=== PATIENT | female | born 1945 | race Caucasian/White ===

== ENCOUNTER 2020-04-05 20:09 | Inpatient (IN) | payer OTHER, MEDICAID, SELFPAY ==
[~2020-04-05] VITALS: Ht 142.2 cm; Wt 46.7 kg
[2020-04-05 20:09] VITALS: BP_SYST 104
[2020-04-05] MEDS ORDERED: NS 500 ML IV ONE (20:30)
[2020-04-05] MEDS ORDERED: NACL 0.9% 1,000 ML IV ONE ×2 (20:41→22:45)
[2020-04-05] MEDS ORDERED: cefTRIAXone 1 GM IVPB PREMIX 50 ML IV ONE (21:00)
[2020-04-05] MEDS ORDERED: AZITHROMYCIN 500 MG in D5W 250 ML IV ONE (21:00)
[2020-04-05 21:03] LABS: MEAN CORPUSCULAR HEMOGLOBIN 29 pg (27-31); MEAN CORPUSCULAR HGB CONC 31 % (32-36)
[2020-04-05] MEDS ORDERED: AZITHROMYCIN 500 MG/VIAL (ZITHROMAX) IV ONE ×2 (21:31)
[2020-04-05 21:32] LABS: MEAN CORPUSCULAR VOLUME 92 fL (79.0-98.0); PLATELET COUNT (AUTO) 276 K/uL (130-430); RED CELL DISTRIBUTION WIDTH 17.4 % (9.0-15.0)
[2020-04-05 21:41] LABS: ANION GAP 16 (5-15); CREATININE 0.97 mg/dL (0.55-1.30); GLUCOSE 103 mg/dL (70-99); SODIUM SERUM 153 mmol/L (136-145); UREA NITROGEN, BLOOD 89 mg/dL (8-21)
[2020-04-05 21:42] LABS: INR 1.4 (0.8-1.2)
[2020-04-05 21:47] LABS: CHLORIDE 124 mmol/L (98-107); POTASSIUM 1.7 mmol/L (3.5-5.1)
[2020-04-05 21:48] LABS: TOTAL BILIRUBIN 0.2 mg/dL (0.0-1.0)
[2020-04-05 21:49] LABS: ALANINE AMINOTRANSFERASE 12 U/L (12-78); ALBUMIN 1.2 g/dL (3.4-4.8); ASPARTATE AMINOTRANSFERASE 11 U/L (10-37)
[2020-04-05 21:50] LABS: LACTATE DEHYDROGENASE 96 U/L (81-234); LIPASE 57 U/L (73-393)
[2020-04-05 21:55] LABS: WHITE BLOOD COUNT (AUTO) 1.4 K/uL (4.8-10.8)
[2020-04-05 21:56] LABS: HEMATOCRIT 16.4 % (36-48); HEMOGLOBIN 5.1 g/dL (12.0-16.0); RED BLOOD CELL COUNT(AUTO) 1.79 MIL/uL (4.2-6.2)
[2020-04-05] MEDS ORDERED: KCL 20 mEq in 100 mL (PREMIX) 100 ML IV ONE ×2 (22:00→22:14)
[2020-04-05] MEDS ORDERED: CALCIUM GLUCONATE 1 GM/10 ML VIAL IVP ONE (22:15)
[2020-04-05 22:27] LABS: C-REACTIVE PROTEIN QUANT 19.8 mg/dL (0-0.5)
[2020-04-05 22:54] LABS: BILIRUBIN,URINE NEGATIVE (NEGATIVE); BLOOD, URINE NEGATIVE (NEGATIVE); COLOR,URINE YELLOW (YELLOW); GLUCOSE,URINE NEGATIVE (NEGATIVE); KETONES,URINE NEGATIVE (NEGATIVE); LEUKOCYTE ESTERASE ,URINE 2+ (NEGATIVE); NITRITE, URINE NEGATIVE (NEGATIVE); PH,URINE 5.5 (5.0-8.0); PROTEIN URINE NEGATIVE (NEGATIVE)
[2020-04-05 22:56] LABS: CLARITY/URINE HAZY (CLEAR)
[2020-04-05 23:08] LABS: BACTERIA,URINE MANY /HPF (None Seen); RBC,URINE 0-3 /HPF (0-3); WBC,URINE 20-50 /HPF (0-3)
[2020-04-05 23:09] LABS: URINE AMORPHOUS URATE 1+ /HPF (None Seen)
[2020-04-05 23:19] LABS: BAND % (MANUAL) 51 % (0-6); BASOPHILS % (MANUAL) 0 % (0-2); EOSINOPHILS % (MANUAL) 0 % (0-7); LYMPHOCYTES % (MANUAL) 18 % (20-46); MONOCYTES % (MANUAL) 10 % (0-11)
[2020-04-06] VITALS (25 sets, daily range): BP systolic 71–139
[2020-04-06] MEDS ORDERED: KCL 20 mEq in 100 mL (PREMIX) 100 ML IV ONE ×2 (00:45→01:15)
[2020-04-06] MEDS: D5W 1,000 ML IV SCH ×3 (02:22→20:26)
[2020-04-06] MEDS ORDERED: PIPERACILLIN/TAZOBACTAM 3.375 GM/VIAL (ZOSYN) IV ONE (03:01)
[2020-04-06] MEDS ORDERED: KCL 40 mEq in 100 mL (PREMIX) 100 ML IV ONE (03:15)
[2020-04-06] MEDS ORDERED: PRO40 PO (03:56)
[2020-04-06] MEDS ORDERED: ASCO500T20 PO (03:56)
[2020-04-06] MEDS ORDERED: BENZ1TAB8 PO (03:57)
[2020-04-06] MEDS ORDERED: HYDR-4272 PO (03:58)
[2020-04-06] MEDS ORDERED: MELA3CAP2 PO (04:00)
[2020-04-06] MEDS ORDERED: MULT-1100 PO (04:00)
[2020-04-06] MEDS ORDERED: NOREPINEPHRINE 4 MG/4 ML VIAL IV ONE (05:30)
[2020-04-06] MEDS: NOREPINEPHRINE BITARTRATE 4 MG in NS 246 ML IV PRN ×3 (05:54→19:08)
[2020-04-06] MEDS: PIPERACILLIN/TAZO 3.375/DEX-IS 50 ML IV SCH ×3 (05:55→18:00)
[2020-04-06] MEDS ORDERED: POTASSIUM CHLORIDE 20 MEQ/PKT PACKET PO ONE (07:45)
[2020-04-06] MEDS ORDERED: CALCIUM CHLORIDE 1 GM/10ML VIAL (13.6 mEq Ca++/VIAL) IV ONE (07:45)
[2020-04-06] MEDS ORDERED: CALCIUM CHLORIDE IV ONE (08:15)
[2020-04-06] MEDS ORDERED: CALCIUM CHLORIDE 2 GM in NS 100 ML IV ONE (08:15)
[2020-04-06] MEDS ORDERED: NS IV ONE (08:15)
[2020-04-06] MEDS ORDERED: SODIUM BICARBONATE 8.4% JECT 50 MEQ/50 ML SYRINGE IVP ONE (09:15)
[2020-04-06 10:14] LABS: BASOPHILS % (AUTO) 0.1 % (0.0-2.0); HEMATOCRIT 40.9 % (36-48); LYMPHOCYTES # (AUTO) 0.3 K/uL (1.0-5.5); LYMPHOCYTES % (AUTO) 5.1 % (20.5-51.5); MEAN CORPUSCULAR HEMOGLOBIN 29 pg (27-31); MEAN CORPUSCULAR HGB CONC 32 % (32-36); MEAN CORPUSCULAR VOLUME 90 fL (79.0-98.0); MONOCYTES # (AUTO) 0.2 K/uL (0.0-1.0); MONOCYTES % (AUTO) 3.6 % (1.7-9.3); NEUTROPHILS # (AUTO) 4.5 K/uL (1.8-7.7); NEUTROPHILS % (AUTO) 91.2 % (40.0-70.0); PLATELET COUNT (AUTO) 252 K/uL (130-430); RED BLOOD CELL COUNT(AUTO) 4.56 MIL/uL (4.2-6.2); RED CELL DISTRIBUTION WIDTH 16.8 % (9.0-15.0)
[2020-04-06] MEDS: PANTOPRAZOLE SODIUM 40 MG in NS 50 ML IV SCH ×2 (10:14→19:09)
[2020-04-06 10:21] LABS: ALANINE AMINOTRANSFERASE 22 U/L (12-78); ALBUMIN 1.8 g/dL (3.4-4.8); ANION GAP 17 (5-15); ASPARTATE AMINOTRANSFERASE 47 U/L (10-37); CALCIUM 7.6 mg/dL (8.4-11.0); CHLORIDE 116 mmol/L (98-107); CREATININE 1.42 mg/dL (0.55-1.30); GLUCOSE 152 mg/dL (70-99); POTASSIUM 3.3 mmol/L (3.5-5.1); SODIUM SERUM 148 mmol/L (136-145); TOTAL BILIRUBIN 0.5 mg/dL (0.0-1.0)
[2020-04-06 10:46] LABS: UREA NITROGEN, BLOOD 115 mg/dL (8-21)
[2020-04-06] MEDS: PROPOFOL DRIP 100 ML IV PRN (18:04)
[2020-04-07] VITALS (31 sets, daily range): BP systolic 78–167
[2020-04-07] MEDS: PIPERACILLIN/TAZO 3.375/DEX-IS 50 ML IV SCH ×4 (00:14→18:09)
[2020-04-07] MEDS: PANTOPRAZOLE SODIUM 40 MG in NS 50 ML IV SCH (00:26)
[2020-04-07] MEDS: NOREPINEPHRINE BITARTRATE 4 MG in NS 246 ML IV PRN ×5 (02:05→22:10)
[2020-04-07] MEDS ORDERED: NOREPINEPHRINE 4 MG/4 ML VIAL IV ONE ×3 (02:05→08:47)
[2020-04-07] MEDS: D5W 1,000 ML IV SCH ×3 (02:06→14:18)
[2020-04-07 06:38] LABS: HEMATOCRIT 30.9 % (36-48); HEMOGLOBIN 10.3 g/dL (12.0-16.0); MEAN CORPUSCULAR HEMOGLOBIN 29 pg (27-31); MEAN CORPUSCULAR HGB CONC 33 % (32-36); MEAN CORPUSCULAR VOLUME 86 fL (79.0-98.0); PLATELET COUNT (AUTO) 172 K/uL (130-430); RED BLOOD CELL COUNT(AUTO) 3.59 MIL/uL (4.2-6.2); RED CELL DISTRIBUTION WIDTH 17.1 % (9.0-15.0)
[2020-04-07 06:48] LABS: ALANINE AMINOTRANSFERASE 24 U/L (12-78); ALBUMIN 1.3 g/dL (3.4-4.8); ANION GAP 12 (5-15); ASPARTATE AMINOTRANSFERASE 32 U/L (10-37); CALCIUM 7.9 mg/dL (8.4-11.0); CHLORIDE 115 mmol/L (98-107); CREATININE 1.28 mg/dL (0.55-1.30); GLUCOSE 131 mg/dL (70-99); POTASSIUM 3.2 mmol/L (3.5-5.1); SODIUM SERUM 146 mmol/L (136-145); TOTAL BILIRUBIN 0.6 mg/dL (0.0-1.0); UREA NITROGEN, BLOOD 79 mg/dL (8-21)
[2020-04-07 07:21] LABS: WHITE BLOOD COUNT (AUTO) 20.3 K/uL (4.8-10.8)
[2020-04-07] MEDS ORDERED: LR 1,000 ML IV ONE (09:15)
[2020-04-07] MEDS ORDERED: POTASSIUM CHLORIDE 20 MEQ/PKT PACKET PO ONE (09:15)
[2020-04-07] MEDS: KCL 20 mEq in 100 mL (PREMIX) 100 ML IV SCH ×2 (11:14→13:16)
[2020-04-07] MEDS: VASOPRESSIN 200 UNITS in D5W 90 ML IV PRN (12:49)
[2020-04-07 13:41] LABS: ATYPICAL LYMPHOCYTES % 0 % (0-0); BAND % (MANUAL) 43 % (0-6); BASOPHILS % (MANUAL) 0 % (0-2); EOSINOPHILS % (MANUAL) 0 % (0-7); LYMPHOCYTES % (MANUAL) 3 % (20-46); METAMYELOCYTES % 2 % (0-0); MONOCYTES % (MANUAL) 1 % (0-11)
[2020-04-07] MEDS: MUPIROCIN 2% TOPICAL OINTMENT 22 GM NS SCH (22:03)
[2020-04-08] VITALS (33 sets, daily range): BP systolic 90–159
[2020-04-08] MEDS: PIPERACILLIN/TAZO 3.375/DEX-IS 50 ML IV SCH ×5 (01:28→23:17)
[2020-04-08] MEDS: D5W 1,000 ML IV SCH ×3 (01:30→20:18)
[2020-04-08] MEDS: NOREPINEPHRINE BITARTRATE 4 MG in NS 246 ML IV PRN ×4 (01:40→18:11)
[2020-04-08 05:38] LABS: BASOPHILS % (AUTO) 0.1 % (0.0-2.0); HEMATOCRIT 29.6 % (36-48); HEMOGLOBIN 9.6 g/dL (12.0-16.0); LYMPHOCYTES # (AUTO) 0.2 K/uL (1.0-5.5); LYMPHOCYTES % (AUTO) 0.7 % (20.5-51.5); MEAN CORPUSCULAR HEMOGLOBIN 28 pg (27-31); MEAN CORPUSCULAR HGB CONC 32 % (32-36); MEAN CORPUSCULAR VOLUME 87 fL (79.0-98.0); MONOCYTES # (AUTO) 0.4 K/uL (0.0-1.0); MONOCYTES % (AUTO) 1.8 % (1.7-9.3); NEUTROPHILS # (AUTO) 23.1 K/uL (1.8-7.7); NEUTROPHILS % (AUTO) 97.4 % (40.0-70.0); PLATELET COUNT (AUTO) 100 K/uL (130-430); RED BLOOD CELL COUNT(AUTO) 3.41 MIL/uL (4.2-6.2); RED CELL DISTRIBUTION WIDTH 17.5 % (9.0-15.0); WHITE BLOOD COUNT (AUTO) 23.7 K/uL (4.8-10.8)
[2020-04-08 05:54] LABS: ALANINE AMINOTRANSFERASE 15 U/L (12-78); ALBUMIN 1.1 g/dL (3.4-4.8); ANION GAP 8 (5-15); ASPARTATE AMINOTRANSFERASE 19 U/L (10-37); CALCIUM 7.3 mg/dL (8.4-11.0); CHLORIDE 113 mmol/L (98-107); CREATININE 0.83 mg/dL (0.55-1.30); GLUCOSE 241 mg/dL (70-99); POTASSIUM 3.4 mmol/L (3.5-5.1); SODIUM SERUM 141 mmol/L (136-145); TOTAL BILIRUBIN 0.5 mg/dL (0.0-1.0); UREA NITROGEN, BLOOD 47 mg/dL (8-21)
[2020-04-08] MEDS ORDERED: NOREPINEPHRINE 4 MG/4 ML VIAL IV ONE (06:46)
[2020-04-08] MEDS ORDERED: SODIUM BICARBONATE 8.4% JECT 50 MEQ/50 ML SYRINGE IVP ONE (08:30)
[2020-04-08] MEDS: MUPIROCIN 2% TOPICAL OINTMENT 22 GM NS SCH ×2 (08:45→22:16)
[2020-04-08] MEDS: PANTOPRAZOLE SODIUM 40 MG/VIAL (PROTONIX) IVP SCH (08:45)
[2020-04-08] MEDS ORDERED: KCL 20 mEq in 100 mL (PREMIX) 100 ML IV ONE (08:45)
[2020-04-08] MEDS ORDERED: D5W 1,000 ML IV PRN (09:37)
[2020-04-08] MEDS ORDERED: GLUCOSE 15 GM GEL (in 37.5 GM TUBE) PO PRN (09:45)
[2020-04-08] MEDS ORDERED: DEXTROSE 50% JECT 50 ML DISP.SYRIN IVP PRN (09:45)
[2020-04-08] MEDS: INSULIN REGULAR, HUMAN 100 UNITS/ML, 10 ML VIAL (humuLIN R) SUBCUT PRN ×2 (11:31→18:24)
[2020-04-08] MEDS: PROPOFOL DRIP 100 ML IV PRN (12:54)
[2020-04-08] MEDS ORDERED: NACL 0.9% 1,000 ML IV ONE (15:00)
[2020-04-08] MEDS ORDERED: LORazepam 2 MG/ML VIAL IVP ONE (15:00)
[2020-04-08] MEDS ORDERED: VANCOMYCIN HCL 1 GM/NS PREMIX 250 ML IV ONE (19:00)
[2020-04-09] VITALS (37 sets, daily range): BP systolic 96–128
[2020-04-09] MEDS ORDERED: ONDANSETRON HCL 4 MG/2 ML VIAL ONE (01:15)
[2020-04-09] MEDS: PROPOFOL DRIP 100 ML IV PRN ×2 (02:50→16:57)
[2020-04-09] MEDS: D5W 1,000 ML IV SCH ×3 (06:18→22:58)
[2020-04-09] MEDS: PIPERACILLIN/TAZO 3.375/DEX-IS 50 ML IV SCH ×3 (06:20→18:28)
[2020-04-09] MEDS: NOREPINEPHRINE BITARTRATE 4 MG in NS 246 ML IV PRN ×3 (06:22→17:14)
[2020-04-09] MEDS: INSULIN REGULAR, HUMAN 100 UNITS/ML, 10 ML VIAL (humuLIN R) SUBCUT PRN ×3 (06:42→18:26)
[2020-04-09 07:02] LABS: ALANINE AMINOTRANSFERASE 14 U/L (12-78); ASPARTATE AMINOTRANSFERASE 23 U/L (10-37); CREATININE 0.65 mg/dL (0.55-1.30); GLUCOSE 165 mg/dL (70-99); TOTAL BILIRUBIN 0.4 mg/dL (0.0-1.0); UREA NITROGEN, BLOOD 38 mg/dL (8-21)
[2020-04-09 07:42] LABS: BASOPHILS % (AUTO) 0.2 % (0.0-2.0); EOSINOPHILS # (AUTO) 0.1 K/uL (0.0-0.4); EOSINOPHILS % (AUTO) 0.8 % (0.0-4.0); HEMATOCRIT 26.2 % (36-48); HEMOGLOBIN 8.8 g/dL (12.0-16.0); LYMPHOCYTES # (AUTO) 0.5 K/uL (1.0-5.5); LYMPHOCYTES % (AUTO) 2.5 % (20.5-51.5); MEAN CORPUSCULAR HEMOGLOBIN 29 pg (27-31); MEAN CORPUSCULAR HGB CONC 33 % (32-36); MEAN CORPUSCULAR VOLUME 87 fL (79.0-98.0); MONOCYTES # (AUTO) 0.4 K/uL (0.0-1.0); MONOCYTES % (AUTO) 1.9 % (1.7-9.3); NEUTROPHILS # (AUTO) 18.1 K/uL (1.8-7.7); PLATELET COUNT (AUTO) 98 K/uL (130-430); RED BLOOD CELL COUNT(AUTO) 3.03 MIL/uL (4.2-6.2); WHITE BLOOD COUNT (AUTO) 19.1 K/uL (4.8-10.8)
[2020-04-09 08:03] LABS: ALBUMIN 0.6 g/dL (3.4-4.8)
[2020-04-09 08:17] LABS: ANION GAP 3 (5-15); CHLORIDE 110 mmol/L (98-107); POTASSIUM 3.4 mmol/L (3.5-5.1); SODIUM SERUM 132 mmol/L (136-145)
[2020-04-09] MEDS: PANTOPRAZOLE SODIUM 40 MG/VIAL (PROTONIX) IVP SCH (08:23)
[2020-04-09] MEDS: MUPIROCIN 2% TOPICAL OINTMENT 22 GM NS SCH ×2 (08:24→22:59)
[2020-04-09 08:44] LABS: CALCIUM 6.4 mg/dL (8.4-11.0)
[2020-04-09 12:23] LABS: NEUTROPHILS % (AUTO) 94.6 % (40.0-70.0)
[2020-04-09] MEDS: HYDROCORTISONE SOD SUCC 100 MG/2 ML VIAL IVP SCH ×2 (12:37→18:28)
[2020-04-09] MEDS ORDERED: ETOMIDATE 20 MG/ 10 ML VIAL (AMIDATE) IVP ONE (15:56)
[2020-04-09] MEDS ORDERED: ROCURONIUM BROMIDE 10 MG/ML (ZEMURON) IV ONE (15:56)
[2020-04-09] MEDS: VASOPRESSIN 200 UNITS in D5W 90 ML IV PRN (17:14)
[2020-04-09] MEDS ORDERED: LORazepam 2 MG/ML VIAL ONE (17:44)
[2020-04-09] MEDS ORDERED: ETOMIDATE 20 MG/ 10 ML VIAL (AMIDATE) ONE (17:47)
[2020-04-09] MEDS ORDERED: LORazepam 2 MG/ML VIAL IVP ONE (18:15)
[2020-04-09] MEDS: KCL 20 mEq in 100 mL (PREMIX) 100 ML IV SCH ×2 (20:09→22:58)
[2020-04-09] MEDS: VANCOMYCIN HCL 750 MG in NS 250 ML IV SCH (22:57)
[2020-04-10] VITALS (35 sets, daily range): BP systolic 81–150
[2020-04-10] MEDS: NOREPINEPHRINE BITARTRATE 4 MG in NS 246 ML IV PRN ×2 (00:43→05:24)
[2020-04-10] MEDS: PIPERACILLIN/TAZO 3.375/DEX-IS 50 ML IV SCH ×4 (01:05→18:07)
[2020-04-10] MEDS: HYDROCORTISONE SOD SUCC 100 MG/2 ML VIAL IVP SCH ×4 (01:05→18:07)
[2020-04-10] MEDS: INSULIN REGULAR, HUMAN 100 UNITS/ML, 10 ML VIAL (humuLIN R) SUBCUT PRN ×4 (02:06→18:19)
[2020-04-10] MEDS ORDERED: NS 500 ML IV ONE (04:34)
[2020-04-10] MEDS: PROPOFOL DRIP 100 ML IV PRN ×2 (05:21→18:27)
[2020-04-10 06:46] LABS: ALANINE AMINOTRANSFERASE 16 U/L (12-78); ALBUMIN 0.9 g/dL (3.4-4.8); ANION GAP 10 (5-15); ASPARTATE AMINOTRANSFERASE 14 U/L (10-37); CALCIUM 7.3 mg/dL (8.4-11.0); CHLORIDE 107 mmol/L (98-107); CREATININE 0.75 mg/dL (0.55-1.30); GLUCOSE 214 mg/dL (70-99); POTASSIUM 3.4 mmol/L (3.5-5.1); SODIUM SERUM 136 mmol/L (136-145); TOTAL BILIRUBIN 0.5 mg/dL (0.0-1.0); UREA NITROGEN, BLOOD 41 mg/dL (8-21)
[2020-04-10 06:54] LABS: HEMATOCRIT 28.5 % (36-48); HEMOGLOBIN 9.1 g/dL (12.0-16.0); MEAN CORPUSCULAR HEMOGLOBIN 28 pg (27-31); MEAN CORPUSCULAR HGB CONC 32 % (32-36); MEAN CORPUSCULAR VOLUME 88 fL (79.0-98.0); PLATELET COUNT (AUTO) 57 K/uL (130-430); RED BLOOD CELL COUNT(AUTO) 3.24 MIL/uL (4.2-6.2); RED CELL DISTRIBUTION WIDTH 17.7 % (9.0-15.0); WHITE BLOOD COUNT (AUTO) 15.4 K/uL (4.8-10.8)
[2020-04-10] MEDS: MUPIROCIN 2% TOPICAL OINTMENT 22 GM NS SCH (09:18)
[2020-04-10] MEDS: PANTOPRAZOLE SODIUM 40 MG/VIAL (PROTONIX) IVP SCH (09:19)
[2020-04-10] MEDS: NOREPINEPHRINE BITARTRATE 4 MG in D5W 250 ML IV PRN ×2 (10:01→16:48)
[2020-04-10 10:33] LABS: BAND % (MANUAL) 14 % (0-6); BASOPHILS % (MANUAL) 0 % (0-2); EOSINOPHILS % (MANUAL) 0 % (0-7); LYMPHOCYTES % (MANUAL) 1 % (20-46); METAMYELOCYTES % 2 % (0-0); MONOCYTES % (MANUAL) 4 % (0-11)
[2020-04-10] MEDS: D5W 1,000 ML IV SCH (13:49)
[2020-04-10] MEDS: KCL 20 mEq in 100 mL (PREMIX) 100 ML IV SCH ×2 (15:54→18:09)
[2020-04-10] MEDS ORDERED: FUROSEMIDE 40 MG/4 ML VIAL IVP ONE (16:00)
[2020-04-10] MEDS ORDERED: SODIUM BICARBONATE 650 MG TABLET NG ONE (16:00)
[2020-04-10] MEDS: VANCOMYCIN HCL 750 MG in NS 250 ML IV SCH (21:25)
[2020-04-11] VITALS (35 sets, daily range): BP systolic 105–148
[2020-04-11] MEDS: MUPIROCIN 2% TOPICAL OINTMENT 22 GM NS SCH ×3 (01:26→22:43)
[2020-04-11] MEDS: PIPERACILLIN/TAZO 3.375/DEX-IS 50 ML IV SCH ×4 (01:26→17:33)
[2020-04-11] MEDS: SODIUM BICARBONATE 650 MG TABLET NG SCH ×5 (01:26→22:43)
[2020-04-11] MEDS: HYDROCORTISONE SOD SUCC 100 MG/2 ML VIAL IVP SCH ×4 (01:27→17:35)
[2020-04-11] MEDS: INSULIN REGULAR, HUMAN 100 UNITS/ML, 10 ML VIAL (humuLIN R) SUBCUT PRN ×5 (03:23→23:06)
[2020-04-11 07:02] LABS: BASOPHILS % (AUTO) 0.2 % (0.0-2.0); HEMATOCRIT 26.6 % (36-48); HEMOGLOBIN 8.6 g/dL (12.0-16.0); LYMPHOCYTES # (AUTO) 0.1 K/uL (1.0-5.5); LYMPHOCYTES % (AUTO) 1.2 % (20.5-51.5); MEAN CORPUSCULAR HEMOGLOBIN 28 pg (27-31); MEAN CORPUSCULAR HGB CONC 32 % (32-36); MEAN CORPUSCULAR VOLUME 88 fL (79.0-98.0); MONOCYTES # (AUTO) 0.2 K/uL (0.0-1.0); MONOCYTES % (AUTO) 1.9 % (1.7-9.3); NEUTROPHILS # (AUTO) 11.8 K/uL (1.8-7.7); NEUTROPHILS % (AUTO) 96.7 % (40.0-70.0); PLATELET COUNT (AUTO) 58 K/uL (130-430); RED BLOOD CELL COUNT(AUTO) 3.04 MIL/uL (4.2-6.2); RED CELL DISTRIBUTION WIDTH 17.4 % (9.0-15.0); WHITE BLOOD COUNT (AUTO) 12.2 K/uL (4.8-10.8)
[2020-04-11 07:30] LABS: ALANINE AMINOTRANSFERASE 17 U/L (12-78); ANION GAP 10 (5-15); ASPARTATE AMINOTRANSFERASE 14 U/L (10-37); CALCIUM 7.3 mg/dL (8.4-11.0); CHLORIDE 100 mmol/L (98-107); CREATININE 0.94 mg/dL (0.55-1.30); GLUCOSE 244 mg/dL (70-99); POTASSIUM 3.6 mmol/L (3.5-5.1); SODIUM SERUM 129 mmol/L (136-145); TOTAL BILIRUBIN 0.2 mg/dL (0.0-1.0); UREA NITROGEN, BLOOD 46 mg/dL (8-21)
[2020-04-11] MEDS: PANTOPRAZOLE SODIUM 40 MG/VIAL (PROTONIX) IVP SCH (10:52)
[2020-04-11] MEDS: PROPOFOL DRIP 100 ML IV PRN (10:56)
[2020-04-11] MEDS: D5W 1,000 ML IV SCH (16:17)
[2020-04-11] MEDS ORDERED: EPOETIN ALFA 4,000 UNITS/ML VIAL SUBCUT ONE (17:30)
[2020-04-11] MEDS: VASOPRESSIN 200 UNITS in D5W 90 ML IV PRN (17:32)
[2020-04-11] MEDS: KCL 40mEq in D5/0.45NS 1000 mL 1,000 ML IV SCH (17:33)
[2020-04-11] MEDS: VANCOMYCIN HCL 750 MG in NS 250 ML IV SCH (20:53)
[2020-04-11] MEDS ORDERED: SOD FERRIC GLUC COMPLEX/SUC 62.5 MG/5 ML VIAL (FERRLECIT) IV ONE (22:28)
[2020-04-11] MEDS: SOD FERRIC GLUC COMPLEX/SUC 125 MG in NS 100 ML IV SCH (22:43)
[2020-04-12] VITALS (36 sets, daily range): BP systolic 113–158
[2020-04-12] MEDS: HYDROCORTISONE SOD SUCC 100 MG/2 ML VIAL IVP SCH ×5 (00:33→23:37)
[2020-04-12] MEDS: PIPERACILLIN/TAZO 3.375/DEX-IS 50 ML IV SCH ×3 (00:33→11:44)
[2020-04-12] MEDS: PROPOFOL DRIP 100 ML IV PRN (06:01)
[2020-04-12] MEDS: INSULIN REGULAR, HUMAN 100 UNITS/ML, 10 ML VIAL (humuLIN R) SUBCUT PRN ×3 (06:36→18:01)
[2020-04-12] MEDS: SODIUM BICARBONATE 650 MG TABLET NG SCH ×4 (08:24→20:08)
[2020-04-12] MEDS: PANTOPRAZOLE SODIUM 40 MG/VIAL (PROTONIX) IVP SCH (08:24)
[2020-04-12] MEDS: KCL 40mEq in D5/0.45NS 1000 mL 1,000 ML IV SCH ×3 (08:24→23:30)
[2020-04-12] MEDS: MUPIROCIN 2% TOPICAL OINTMENT 22 GM NS SCH ×2 (08:25→20:08)
[2020-04-12] MEDS ORDERED: FUROSEMIDE 40 MG/4 ML VIAL IVP ONE (15:30)
[2020-04-12] MEDS: SOD FERRIC GLUC COMPLEX/SUC 125 MG in NS 100 ML IV SCH (17:41)
[2020-04-12] MEDS: VANCOMYCIN HCL 750 MG in NS 250 ML IV SCH (20:07)
[2020-04-13] VITALS (34 sets, daily range): BP systolic 121–137
[2020-04-13] MEDS ORDERED: metroNIDAZOLE 500 mg/NS 200 ML IV ONE (00:18)
[2020-04-13] MEDS ORDERED: CEFEPIME 1 GM/VIAL (MAXIPIME) ONE (00:18)
[2020-04-13] MEDS: CEFEPIME 1 GM in D5W 50 ML IV SCH ×3 (00:20→21:57)
[2020-04-13] MEDS: PROPOFOL DRIP 100 ML IV PRN (00:30)
[2020-04-13] MEDS: INSULIN REGULAR, HUMAN 100 UNITS/ML, 10 ML VIAL (humuLIN R) SUBCUT PRN ×4 (00:51→17:51)
[2020-04-13] MEDS: metroNIDAZOLE 500 mg/NS 100 ML IV SCH ×4 (01:31→22:48)
[2020-04-13] MEDS: KCL 40mEq in D5/0.45NS 1000 mL 1,000 ML IV SCH ×2 (04:17→04:18)
[2020-04-13] MEDS: HYDROCORTISONE SOD SUCC 100 MG/2 ML VIAL IVP SCH ×4 (05:00→23:23)
[2020-04-13] MEDS: PANTOPRAZOLE SODIUM 40 MG/VIAL (PROTONIX) IVP SCH (09:03)
[2020-04-13] MEDS: SODIUM BICARBONATE 650 MG TABLET NG SCH ×4 (09:03→20:06)
[2020-04-13 11:38] LABS: BASOPHILS % (AUTO) 0.2 % (0.0-2.0); HEMATOCRIT 27.8 % (36-48); LYMPHOCYTES # (AUTO) 0.1 K/uL (1.0-5.5); LYMPHOCYTES % (AUTO) 0.8 % (20.5-51.5); MEAN CORPUSCULAR HEMOGLOBIN 28 pg (27-31); MEAN CORPUSCULAR HGB CONC 32 % (32-36); MEAN CORPUSCULAR VOLUME 88 fL (79.0-98.0); MONOCYTES # (AUTO) 0.2 K/uL (0.0-1.0); MONOCYTES % (AUTO) 1.3 % (1.7-9.3); NEUTROPHILS # (AUTO) 16.8 K/uL (1.8-7.7); NEUTROPHILS % (AUTO) 97.7 % (40.0-70.0); PLATELET COUNT (AUTO) 142 K/uL (130-430); RED BLOOD CELL COUNT(AUTO) 3.18 MIL/uL (4.2-6.2); RED CELL DISTRIBUTION WIDTH 16.7 % (9.0-15.0); WHITE BLOOD COUNT (AUTO) 17.2 K/uL (4.8-10.8)
[2020-04-13 12:01] LABS: ALANINE AMINOTRANSFERASE 22 U/L (12-78); ANION GAP 8 (5-15); ASPARTATE AMINOTRANSFERASE 14 U/L (10-37); CALCIUM 7.2 mg/dL (8.4-11.0); CHLORIDE 97 mmol/L (98-107); CREATININE 1.39 mg/dL (0.55-1.30); GLUCOSE 249 mg/dL (70-99); SODIUM SERUM 124 mmol/L (136-145); TOTAL BILIRUBIN 0.2 mg/dL (0.0-1.0); UREA NITROGEN, BLOOD 59 mg/dL (8-21)
[2020-04-13] MEDS ORDERED: FUROSEMIDE 40 MG/4 ML VIAL IVP ONE (12:30)
[2020-04-13] MEDS ORDERED: MORPHINE 2 MG/ML INJ. SYRINGE IVP PRN (17:00)
[2020-04-13] MEDS: VANCOMYCIN HCL 750 MG in NS 250 ML IV SCH (20:06)
[2020-04-13] MEDS ORDERED: SILVER SULFADIAZINE 1%, 25 GM TOPICAL CREAM (SSD) TP SCH (21:00)
[2020-04-14] VITALS (32 sets, daily range): BP systolic 66–132
[2020-04-14] MEDS: metroNIDAZOLE 500 mg/NS 100 ML IV SCH ×3 (05:25→23:03)
[2020-04-14] MEDS: HYDROCORTISONE SOD SUCC 100 MG/2 ML VIAL IVP SCH ×2 (05:29→13:23)
[2020-04-14] MEDS: INSULIN REGULAR, HUMAN 100 UNITS/ML, 10 ML VIAL (humuLIN R) SUBCUT PRN (05:51)
[2020-04-14 05:58] LABS: BASOPHILS % (AUTO) 0.1 % (0.0-2.0); HEMATOCRIT 28.8 % (36-48); HEMOGLOBIN 9.3 g/dL (12.0-16.0); LYMPHOCYTES # (AUTO) 0.1 K/uL (1.0-5.5); LYMPHOCYTES % (AUTO) 0.9 % (20.5-51.5); MEAN CORPUSCULAR HEMOGLOBIN 28 pg (27-31); MEAN CORPUSCULAR HGB CONC 32 % (32-36); MEAN CORPUSCULAR VOLUME 88 fL (79.0-98.0); MONOCYTES # (AUTO) 0.1 K/uL (0.0-1.0); MONOCYTES % (AUTO) 0.7 % (1.7-9.3); NEUTROPHILS # (AUTO) 14.2 K/uL (1.8-7.7); NEUTROPHILS % (AUTO) 98.3 % (40.0-70.0); PLATELET COUNT (AUTO) 180 K/uL (130-430); RED BLOOD CELL COUNT(AUTO) 3.27 MIL/uL (4.2-6.2); RED CELL DISTRIBUTION WIDTH 16.7 % (9.0-15.0); WHITE BLOOD COUNT (AUTO) 14.5 K/uL (4.8-10.8)
[2020-04-14 06:48] LABS: ALANINE AMINOTRANSFERASE 26 U/L (12-78); ANION GAP 12 (5-15); ASPARTATE AMINOTRANSFERASE 14 U/L (10-37); CALCIUM 7.6 mg/dL (8.4-11.0); CHLORIDE 96 mmol/L (98-107); CREATININE 1.48 mg/dL (0.55-1.30); GLUCOSE 172 mg/dL (70-99); POTASSIUM 4.6 mmol/L (3.5-5.1); SODIUM SERUM 124 mmol/L (136-145); TOTAL BILIRUBIN 0.3 mg/dL (0.0-1.0); UREA NITROGEN, BLOOD 67 mg/dL (8-21)
[2020-04-14] MEDS ORDERED: FUROSEMIDE 20 MG/2 ML VIAL IVP ONE (09:00)
[2020-04-14] MEDS: PANTOPRAZOLE SODIUM 40 MG/VIAL (PROTONIX) IVP SCH (09:00)
[2020-04-14] MEDS: SODIUM BICARBONATE 650 MG TABLET NG SCH ×3 (09:30→21:00)
[2020-04-14] MEDS ORDERED: VANCOMYCIN HCL 1 GM/NS PREMIX 250 ML IV ONE (10:00)
[2020-04-14] MEDS: CEFEPIME 1 GM in D5W 50 ML IV SCH ×2 (11:03→21:46)
[2020-04-14] MEDS: VANCOMYCIN HCL 750 MG in NS 250 ML IV SCH (20:14)
[2020-04-15] VITALS (36 sets, daily range): BP systolic 86–116
[2020-04-15] MEDS: metroNIDAZOLE 500 mg/NS 100 ML IV SCH ×3 (05:26→22:31)
[2020-04-15] MEDS: HYDROCORTISONE SOD SUCC 100 MG/2 ML VIAL IVP SCH ×4 (06:00→23:55)
[2020-04-15 06:07] LABS: HEMATOCRIT 27.1 % (36-48); HEMOGLOBIN 8.8 g/dL (12.0-16.0); RED BLOOD CELL COUNT(AUTO) 3.09 MIL/uL (4.2-6.2)
[2020-04-15 06:08] LABS: BASOPHILS % (AUTO) 0.1 % (0.0-2.0); LYMPHOCYTES # (AUTO) 0.2 K/uL (1.0-5.5); LYMPHOCYTES % (AUTO) 1.4 % (20.5-51.5); MEAN CORPUSCULAR HEMOGLOBIN 28 pg (27-31); MEAN CORPUSCULAR HGB CONC 32 % (32-36); MEAN CORPUSCULAR VOLUME 88 fL (79.0-98.0); MONOCYTES # (AUTO) 0.1 K/uL (0.0-1.0); MONOCYTES % (AUTO) 0.6 % (1.7-9.3); NEUTROPHILS # (AUTO) 12.8 K/uL (1.8-7.7); NEUTROPHILS % (AUTO) 97.9 % (40.0-70.0); PLATELET COUNT (AUTO) 213 K/uL (130-430)
[2020-04-15 06:16] LABS: ALANINE AMINOTRANSFERASE 27 U/L (12-78); ALBUMIN 0.9 g/dL (3.4-4.8); ANION GAP 14 (5-15); ASPARTATE AMINOTRANSFERASE 13 U/L (10-37); CALCIUM 7.4 mg/dL (8.4-11.0); CHLORIDE 98 mmol/L (98-107); CREATININE 1.81 mg/dL (0.55-1.30); GLUCOSE 225 mg/dL (70-99); POTASSIUM 4.4 mmol/L (3.5-5.1); SODIUM SERUM 126 mmol/L (136-145); TOTAL BILIRUBIN 0.3 mg/dL (0.0-1.0); UREA NITROGEN, BLOOD 82 mg/dL (8-21); VANCOMYCIN,RANDOM 38.8 ug/mL
[2020-04-15] MEDS: PANTOPRAZOLE SODIUM 40 MG/VIAL (PROTONIX) IVP SCH (08:28)
[2020-04-15] MEDS: SODIUM BICARBONATE 650 MG TABLET NG SCH ×4 (08:28→20:31)
[2020-04-15] MEDS: CEFEPIME 1 GM in D5W 50 ML IV SCH ×2 (08:28→20:31)
[2020-04-15] MEDS: INSULIN REGULAR, HUMAN 100 UNITS/ML, 10 ML VIAL (humuLIN R) SUBCUT PRN ×3 (13:54→23:57)
[2020-04-15] MEDS ORDERED: ALBUMIN HUMAN 25% 100 ML IV ONE (23:15)
[2020-04-16] VITALS (29 sets, daily range): BP systolic 81–165
[2020-04-16] MEDS ORDERED: ALBUMIN HUMAN 25% 100 ML IV ONE (00:05)
[2020-04-16] MEDS: HYDROCORTISONE SOD SUCC 100 MG/2 ML VIAL IVP SCH ×4 (05:50→23:05)
[2020-04-16] MEDS: metroNIDAZOLE 500 mg/NS 100 ML IV SCH ×3 (05:50→21:01)
[2020-04-16] MEDS: CEFEPIME 1 GM in D5W 50 ML IV SCH ×2 (09:47→20:44)
[2020-04-16] MEDS: SODIUM BICARBONATE 650 MG TABLET NG SCH ×4 (09:47→20:44)
[2020-04-16] MEDS: PANTOPRAZOLE SODIUM 40 MG/VIAL (PROTONIX) IVP SCH (09:47)
[2020-04-16] MEDS: INSULIN REGULAR, HUMAN 100 UNITS/ML, 10 ML VIAL (humuLIN R) SUBCUT PRN ×2 (17:49→23:51)
[2020-04-17] VITALS (35 sets, daily range): BP systolic 69–124
[2020-04-17 06:35] LABS: HEMATOCRIT 26.5 % (36-48); HEMOGLOBIN 8.3 g/dL (12.0-16.0); MEAN CORPUSCULAR HEMOGLOBIN 28 pg (27-31); MEAN CORPUSCULAR HGB CONC 31 % (32-36); MEAN CORPUSCULAR VOLUME 89 fL (79.0-98.0); PLATELET COUNT (AUTO) 253 K/uL (130-430); RED BLOOD CELL COUNT(AUTO) 2.96 MIL/uL (4.2-6.2); RED CELL DISTRIBUTION WIDTH 17.6 % (9.0-15.0)
[2020-04-17] MEDS: HYDROCORTISONE SOD SUCC 100 MG/2 ML VIAL IVP SCH ×4 (06:35→23:44)
[2020-04-17] MEDS: metroNIDAZOLE 500 mg/NS 100 ML IV SCH ×3 (06:36→21:28)
[2020-04-17] MEDS: INSULIN REGULAR, HUMAN 100 UNITS/ML, 10 ML VIAL (humuLIN R) SUBCUT PRN ×3 (06:44→23:49)
[2020-04-17 07:04] LABS: ALANINE AMINOTRANSFERASE 25 U/L (12-78); ALBUMIN 1.3 g/dL (3.4-4.8); ANION GAP 17 (5-15); ASPARTATE AMINOTRANSFERASE 11 U/L (10-37); CALCIUM 7.1 mg/dL (8.4-11.0); CHLORIDE 98 mmol/L (98-107); CREATININE 2.53 mg/dL (0.55-1.30); GLUCOSE 253 mg/dL (70-99); POTASSIUM 4.6 mmol/L (3.5-5.1); SODIUM SERUM 127 mmol/L (136-145); TOTAL BILIRUBIN 0.3 mg/dL (0.0-1.0); VANCOMYCIN,RANDOM 31.5 ug/mL
[2020-04-17 07:57] LABS: WHITE BLOOD COUNT (AUTO) 23.9 K/uL (4.8-10.8)
[2020-04-17 08:06] LABS: UREA NITROGEN, BLOOD 109 mg/dL (8-21)
[2020-04-17] MEDS: SODIUM BICARBONATE 650 MG TABLET NG SCH ×4 (08:22→21:27)
[2020-04-17] MEDS: CEFEPIME 1 GM in D5W 50 ML IV SCH ×2 (08:22→21:28)
[2020-04-17] MEDS: PANTOPRAZOLE SODIUM 40 MG/VIAL (PROTONIX) IVP SCH (08:22)
[2020-04-17] MEDS: NOREPINEPHRINE BITARTRATE 4 MG in D5W 246 ML IV PRN (09:37)
[2020-04-17] MEDS ORDERED: SODIUM BICARBONATE 8.4% JECT 50 MEQ/50 ML SYRINGE IVP ONE (14:00)
[2020-04-17] MEDS: NACL 0.9% 1,000 ML IV SCH (14:19)
[2020-04-17 14:26] LABS: ATYPICAL LYMPHOCYTES % 0 % (0-0); BAND % (MANUAL) 30 % (0-6); BASOPHILS % (MANUAL) 0 % (0-2); EOSINOPHILS % (MANUAL) 0 % (0-7); LYMPHOCYTES % (MANUAL) 3 % (20-46); MONOCYTES % (MANUAL) 0 % (0-11)
[2020-04-18] VITALS (20 sets, daily range): BP systolic 76–115
[2020-04-18] MEDS: metroNIDAZOLE 500 mg/NS 100 ML IV SCH ×2 (05:11→13:57)
[2020-04-18] MEDS: HYDROCORTISONE SOD SUCC 100 MG/2 ML VIAL IVP SCH ×2 (05:12→11:09)
[2020-04-18] MEDS: INSULIN REGULAR, HUMAN 100 UNITS/ML, 10 ML VIAL (humuLIN R) SUBCUT PRN ×2 (05:38→11:47)
[2020-04-18 07:15] LABS: ALANINE AMINOTRANSFERASE 23 U/L (12-78); ALBUMIN 1.2 g/dL (3.4-4.8); ANION GAP 19 (5-15); CHLORIDE 99 mmol/L (98-107); GLUCOSE 248 mg/dL (70-99); POTASSIUM 4.5 mmol/L (3.5-5.1); SODIUM SERUM 128 mmol/L (136-145); TOTAL BILIRUBIN 0.4 mg/dL (0.0-1.0)
[2020-04-18 07:35] LABS: UREA NITROGEN, BLOOD 117 mg/dL (8-21)
[2020-04-18 07:57] LABS: ASPARTATE AMINOTRANSFERASE 133 U/L (10-37)
[2020-04-18] MEDS: SODIUM BICARBONATE 650 MG TABLET NG SCH ×2 (08:52→13:00)
[2020-04-18] MEDS: PANTOPRAZOLE SODIUM 40 MG/VIAL (PROTONIX) IVP SCH (08:53)
[2020-04-18] MEDS: CEFEPIME 1 GM in D5W 50 ML IV SCH (08:53)
[2020-04-18 09:25] LABS: BASOPHILS # (AUTO) 0.2 K/uL (0.0-0.2); BASOPHILS % (AUTO) 0.8 % (0.0-2.0); HEMATOCRIT 23.8 % (36-48); HEMOGLOBIN 7.5 g/dL (12.0-16.0); LYMPHOCYTES # (AUTO) 0.1 K/uL (1.0-5.5); LYMPHOCYTES % (AUTO) 0.5 % (20.5-51.5); MEAN CORPUSCULAR HEMOGLOBIN 28 pg (27-31); MEAN CORPUSCULAR HGB CONC 31 % (32-36); MEAN CORPUSCULAR VOLUME 89 fL (79.0-98.0); MONOCYTES # (AUTO) 0.4 K/uL (0.0-1.0); MONOCYTES % (AUTO) 1.6 % (1.7-9.3); NEUTROPHILS % (AUTO) 97.1 % (40.0-70.0); PLATELET COUNT (AUTO) 218 K/uL (130-430); RED BLOOD CELL COUNT(AUTO) 2.68 MIL/uL (4.2-6.2); WHITE BLOOD COUNT (AUTO) 24.8 K/uL (4.8-10.8)
[2020-04-18] MEDS: NOREPINEPHRINE BITARTRATE 4 MG in D5W 246 ML IV PRN (11:09)
[2020-04-18] MEDS: NACL 0.9% 1,000 ML IV SCH ×2 (11:10)
[2020-04-18] MEDS ORDERED: MORPHINE I.V. DRIP 100 ML IV PRN (13:00)
[2020-04-18] MEDS ORDERED: LORazepam 2 MG/ML VIAL IVP PRN (13:00)
[2020-04-18] MEDS ORDERED: MORPHINE 4 MG/ML INJ. SYRINGE IVP ONE (13:15)
[2020-04-18] MEDS ORDERED: MORPHINE 4 MG/ML INJ. SYRINGE ONE (13:39)
== END 2020-04-18 17:59 | disposition expired | DRG 870 ==
LOC: SED 20:09 → EEVIPCON 04-06 00:49 → SIC 04-06 00:49
PROVIDERS: ADMIT Internal Medicine Hospice and Palliative Medicine; ATTEND Internal Medicine Hospice and Palliative Medicine
PROC: 5A1955Z Respiratory Ventilation, Greater than 96 Consecutive Hours (ICD-10-PCS; 2020-04-06)
PROC: 30233N1 Transfusion of Nonautologous Red Blood Cells into Peripheral Vein, Percutaneous Approach (ICD-10-PCS; 2020-04-06)
PROC: 06HY33Z Insertion of Infusion Device into Lower Vein, Percutaneous Approach (ICD-10-PCS; 2020-04-06)
PROC: 0BH17EZ Insertion of Endotracheal Airway into Trachea, Via Natural or Artificial Opening (ICD-10-PCS; 2020-04-06)
PROC: 02H633Z Insertion of Infusion Device into Right Atrium, Percutaneous Approach (ICD-10-PCS; principal; 2020-04-11)
PROC: B548ZZA Ultrasonography of Superior Vena Cava, Guidance (ICD-10-PCS; 2020-04-11)
DX: A41.9 Sepsis, unspecified organism (principal); R65.21 Severe sepsis with septic shock; J96.01 Acute respiratory failure with hypoxia; J18.9 Pneumonia, unspecified organism; E43 Unspecified severe protein-calorie malnutrition; D62 Acute posthemorrhagic anemia; E87.0 Hyperosmolality and hypernatremia; E87.2 Acidosis; G93.40 Encephalopathy, unspecified; N39.0 Urinary tract infection, site not specified; N17.9 Acute kidney failure, unspecified; G93.1 Anoxic brain damage, not elsewhere classified; Z66 Do not resuscitate; E87.6 Hypokalemia; E83.51 Hypocalcemia; E86.0 Dehydration; Z20.828 Contact with and (suspected) exposure to other viral communicable diseases; K21.9 Gastro-esophageal reflux disease without esophagitis; K52.9 Noninfective gastroenteritis and colitis, unspecified; E11.9 Type 2 diabetes mellitus without complications; Z79.899 Other long term (current) drug therapy; Z68.23 Body mass index [BMI] 23.0-23.9, adult
CPT/HCPCS: 36415; 36600; 71045; 71250-TC; 80048; 80053; 80202-TC; 81000-TC; 82272; 82550-TC; 82728; 82803-TC; 82962; 83519; 83605; 83615-TC; 83690-TC; 83735-TC; 83880; 84100-TC; 84484; 85007; 85025; 85027; 85384-TC; 85610-TC; 85730-TC; 86140; 86886; 86900; 86901; 86920; 87040-TC; 87070-TC; 87081; 87086; 87186-TC; 87205-TC; 93005; 94002; 94003; 94640; 96365; 96367; 96375; 99291; A6209; C1751; C9113; J0456; J0610; J0692; J0696; J0885; J1720; J1815; J1940; J2060; J2270; J2405; J2543; J2704; J2916; J3370; J3480; J3490; J7030; J7040; J7050; J7060; J7120; P9021; P9046; U0003-CS